=== PATIENT | female | born 1985 | race Caucasian/White ===

== ENCOUNTER 2016-11-04 13:38 | Emergency (ER) | payer OTHER ==
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
[2016-11-04] MEDS ORDERED: ACETAMINOPHEN 325 MG TABLET PO ONE (16:30)
[2016-11-04] MEDS ORDERED: METHOCARBAMOL 500 MG TABLET PO ONE (16:30)
[2016-11-04] MEDS: ACETAMINOPHEN 325 MG TABLET PO STA (16:43)
[2016-11-04] MEDS: METHOCARBAMOL 500 MG TABLET PO STA (16:43)
--- NOTE | 2016-11-04 16:54 | XRAY Preliminary Report ---
Exam: XR Lumbar Spine 2 View IMPRESSION: 1. No acute bony abnormality. 2. Old minimal wedging L1. 3. IUD. [facility] SITE ID: [id number]
[2016-11-04 17:15] VITALS: BP 129/85
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
== END 2016-11-04 17:15 | disposition home or self-care (01) ==
LOC: ED 13:38
DX: S39.012A Strain of muscle, fascia and tendon of lower back, initial encounter (principal); V43.52XA Car driver injured in collision with other type car in traffic accident, initial encounter; Y92.488 Other paved roadways as the place of occurrence of the external cause; Z97.5 Presence of (intrauterine) contraceptive device
CPT/HCPCS: 72100; 99283

== ENCOUNTER 2016-11-21 15:20 | Outpatient (CLI) | payer OTHER | END 2016-11-21 23:59 | DX: Z13.9 Encounter for screening, unspecified (principal) ==

== ENCOUNTER 2016-12-20 12:41 | Outpatient (CLI) | payer OTHER ==
--- NOTE | 2016-12-20 14:28 | Ultrasound Report ---
ABDOMINAL ULTRASOUND: 12/20/2016 CLINICAL INDICATION: Elevated LFTs, abdominal pain. TECHNIQUE: Real-time scanning was performed with life assurance representative static images obtained. FINDINGS: The liver measures 15.4 cm. Hepatic echotexture is normal. No intrahepatic biliary dilatat ion or focal parenchymal lesion is appreciated. The common bile duct measures 2 mm. The gallbladder i s unremarkable. The right kidney measures 12.2 cm, and the left kidney measures 13.0 cm. No solid fidel al lesion or hydronephrosis is present. The spleen measures 12 cm, and demonstrates normal echotextur e. The abdominal aorta is normal in caliber. The inferior vena cava is unremarkable. No free fluid is present. The pancreas is obscured by bowel gas. IMPRESSION: NORMAL ABDOMINAL ULTRASOUND. JOB #: [id number] EXT JOB #:[id number]
--- NOTE | 2016-12-20 17:04 | Ultrasound Report ---
EXAM: PELVIC ULTRASOUND EXAM DATE: 12/20/2016 03:02 PM. CLINICAL HISTORY: Elevated liver enzymes. Lower abdomen pain. COMPARISON: None. TECHNIQUE: Realtime transabdominal pelvic scan performed to identify the uterus and adnexa and as an overview of other pelvic structures, followed by transvaginal scan to provide greater detail of the u terus and adnexa, with static image documentation. FINDINGS: Uterus: 10.3 x 5.2 x 2.5 cm, volume 70 cc. Anteverted position. Normal overall size and echotexture. Masses: None. Endometrium: [address] Cervix: Unremarkable. Right Ovary: 3.4 x 1.8 x 2.0 cm, volume 6.4 cc. Normal echotexture and blood flow. Left Ovary: 3.3 x 1.8 x 1.9 cm, volume 5.9 cc. Normal echotexture and blood flow. Dominant follicle m easures 1.5 x 1.2 x 1.1 cm. Free Fluid: None. Other: None. IMPRESSION: IUD in place, otherwise unremarkable pelvic ultrasound. [facility] Referring Provider Line: [phone] SITE ID: [id number]
== END 2016-12-20 12:42 | disposition home or self-care (01) ==
LOC: DI 12:41
PROVIDERS: ATTEND Nurse Practitioner Gerontology
DX: R74.8 Abnormal levels of other serum enzymes (principal)
CPT/HCPCS: 76700; 76830; 76856

== ENCOUNTER 2016-12-28 21:55 | Emergency (ER) | payer OTHER ==
[2016-12-28 22:07] VITALS: BP 117/81
[2016-12-28 22:35] LABS: RAPID STREP SCREEN REAGENT QC YELLOW (YELLOW)
[2016-12-29] MEDS ORDERED: DEXAMETHASONE 10 MG/ML VIAL PO STA (00:04)
--- NOTE | 2016-12-29 00:07 | ED Physician Documentation ---
PD HPI URI - Stated complaint Stated Complaint: SORE THROAT - Chief complaint Chief Complaint: Heent - History obtained from History obtained from: Patient, Family - History of Present Illness Timing - onset: How many weeks ago (3) Timing duration: Weeks (3) Timing details: Intermittant Pain level max: 7 Pain level now: 5 Associated symptoms: Fever (subjective), Ear pain, Nasal congestion, Rhinorrhea , Sore throat, Dry cough (mild) Contributing factors: No: Sick contact Improves by: Rest Worsened by: Other (swallowing) Recently seen: Clinic (PCP for same, no dx) Review of Systems Throat: reports: Sore throat GI: denies: Vomiting : denies: Now EGA Skin: denies: Rash Musculoskeletal: denies: Neck pain, Back pain Neurologic: denies: Headache PD PAST MEDICAL HISTORY - Past Medical History Past Medical History: No Neuro: None Musculoskeletal: None - Past Surgical History Past Surgical History: No - Present Medications Home Medications: Ambulatory Orders Medication Instructions Recorded Confirmed Dexamethasone [Decadron] 4 mg PO DAILY #5 tablet 11/04/16 Hydrocodone/Acetaminophen [[place] 1 each PO Q6H PRN #20 tablet 11/04/16 5-325 Tablet] Levonorgestrel [Mirena] 1 each IY 11/04/16 Methocarbamol [Robaxin] 500 mg PO Q6H PRN #25 tablet 11/04/16 Naproxen [Naprosyn] 500 mg PO BID #20 tablet 11/04/16 Prednisone 40 mg PO DAILY #10 tablet 12/29/16 - Allergies Allergies/Adverse Reactions: Allergies Allergy/AdvReac Type Severity Reaction Status Date / Time mold Allergy Respiratory Verified 11/04/16 13:46 - Social History Does the pt smoke?: No Smoking Status: Never smoker Does the pt drink ETOH?: No Does the pt have substance abuse?: No - Immunizations Immunizations are current?: Yes - POLST Patient has POLST: No PD ED PE NORMAL - Vitals Vital signs reviewed: Yes - General General: Alert and oriented X 3, No acute distress, Well developed/nourished - HEENT HEENT: PERRL, Ears normal, Moist mucous membranes, Other (Mild posterior oropharyngeal erythema without tonsillar exudates. Uvula midline. No trismus. Normal phonation) - Neck Neck: Supple, no meningeal sign, No adenopathy - Cardiac Cardiac: RRR - Respiratory Respiratory: No respiratory distress, Clear bilaterally - Abdomen Abdomen: Soft, Non tender, Non distended, No organomegaly - Derm Derm: Warm and dry, No rash - Neuro Neuro: Alert and oriented X 3 Results - Vitals Vitals: Oxygen O2 Source Room air - Labs Labs: Microbiology 12/28/16 22:11 Group A Strep Throat Culture - Preliminary Throat Laboratory Tests 12/28/16 22:11 Group A Strep Rapid Negative PD MEDICAL DECISION MAKING - ED course Complexity details: reviewed results, re-evaluated patient, considered differential, d/w patient, d/w family ED course: Patient is a 31-year-old female that appears to be a viral pharyngitis. Rapid strep is negative. Throat culture sent. She is very well-appearing, nontoxic. Tolerating p.o. without difficulty. No evidence of peritonsillar or retropharyngeal abscess. Given dexamethasone here and will continue supportive care at home. Patient counseled regarding signs and symptoms for which I believe and urgent re-evaluation would be necessary. Patient with good understanding of and agreement to plan and is comfortable going home at this time This document was made in part using voice recognition software. While efforts are made to proofread this document, sound alike and grammatical errors may occur. Departure - Departure Disposition: 01 Home, Self Care Clinical Impression: Pharyngitis Qualifiers: Pharyngitis/tonsillitis etiology: unspecified etiology Qualified Code(s): J02.9 - Acute pharyngitis, unspecified Condition: Good Instructions: ED Pharyngitis Viral Follow-Up: Meme Vera ARNP [Primary Care Provider] - Within 1 week [facility] [Provider Group] Prescriptions: Prednisone 40 mg PO DAILY #10 tablet Comments: Return if you worsen. Drink plenty of fluids and rest. Discharge Date/Time: 12/29/16 00:13
[2016-12-29] MEDS ORDERED: DEXAMETHASONE 10 MG/ML VIAL ONE (00:08)
== END 2016-12-29 00:13 | disposition home or self-care (01) ==
LOC: ED 21:55
DX: J02.9 Acute pharyngitis, unspecified (principal)
CPT/HCPCS: 87070; 87430; 99282; 99283

== ENCOUNTER 2017-01-06 11:33 | Outpatient (CLI) | payer OTHER ==
[2017-01-06 19:31] LABS: BILIRUBIN,DIRECT 0.1 mg/dL (0.1-0.5); BILIRUBIN,TOTAL 0.6 mg/dL (0.2-1.0)
[2017-01-07 08:37] LABS: HEPATITIS A AB TOTAL(IMMUNITY) NON-REACTIVE (NON-REACTIVE)
== END 2017-01-06 11:34 | disposition home or self-care (01) ==
LOC: LAB.N 11:33
PROVIDERS: ATTEND Nurse Practitioner Gerontology
DX: R74.8 Abnormal levels of other serum enzymes (principal); R10.30 Lower abdominal pain, unspecified
CPT/HCPCS: 36415; 80076; 81599; 86317; 86704; 86706; 86708; 86803; 87340

== ENCOUNTER 2018-11-18 20:24 | Emergency (ER) | payer OTHER ==
[2018-11-18 20:31] VITALS: BP 142/87
[2018-11-18] MEDS ORDERED: IBUPROFEN 800 MG TABLET PO STA (20:45)
[2018-11-18] MEDS ORDERED: guaiFENesin/CODEINE 5 ML UDC PO STA (20:45)
--- NOTE | 2018-11-18 20:47 | ED Physician Documentation ---
History of Present Illness - Stated complaint Stated Complaint: FLU LIKE SYMPTOMS - Chief complaint Chief Complaint: General - History obtained from History obtained from: Patient - History of Present Illness Timing: Other (She is been sick for 3 days with cough, runny nose sore throat chills body aches and sinus pain. She had right ear pain but now that is better. No recent travel. There is a possibility of .) Review of Systems Constitutional: reports: Fever, Chills, Myalgias, Fatigue Ears: reports: Ear pain Nose: reports: Rhinorrhea / runny nose, Congestion, Sinus pressure / pain Throat: reports: Sore throat Respiratory: reports: Cough. denies: Dyspnea GI: denies: Abdominal Pain PD PAST MEDICAL HISTORY - Past Medical History Musculoskeletal: None - Past Surgical History Past Surgical History: No - Present Medications Home Medications: Ambulatory Orders Medication Instructions Recorded Confirmed Dexamethasone [Decadron] 4 mg PO DAILY #5 tablet 11/04/16 Hydrocodone/Acetaminophen [[place] 1 each PO Q6H PRN #20 tablet 11/04/16 5-325 Tablet] Levonorgestrel [Mirena] 1 each IY 11/04/16 Methocarbamol [Robaxin] 500 mg PO Q6H PRN #25 tablet 11/04/16 Naproxen [Naprosyn] 500 mg PO BID #20 tablet 11/04/16 predniSONE [Prednisone] 40 mg PO DAILY #10 tablet 12/29/16 Guaifenesin/Pseudoephedrne HCl 1 each PO BID PRN #20 tab.er.12h 11/18/18 [Mucinex D ER 600-60 mg Tablet] Ibuprofen [Motrin] 800 mg PO Q8H PRN #30 tablet 11/18/18 guaiFENesin/CODEINE [Robitussin AC] 5 - 10 ml PO Q6H PRN #120 ml 11/18/18 - Allergies Allergies/Adverse Reactions: Allergies Allergy/AdvReac Type Severity Reaction Status Date / Time mold Allergy Respiratory Verified 11/18/18 20:31 - Social History Does the pt smoke?: No Smoking Status: Never smoker Does the pt drink ETOH?: No Does the pt have substance abuse?: No - Immunizations Immunizations are current?: Yes - POLST Patient has POLST: No PD ED PE NORMAL - Vitals Vital signs reviewed: Yes - General General: Alert and oriented X 3, No acute distress - HEENT HEENT: Ears normal, Pharynx benign - Neck Neck: Supple, no meningeal sign, No bony TTP - Cardiac Cardiac: RRR, No murmur - Respiratory Respiratory: Other (Pretty rhonchorous especially at the bases) - Abdomen Abdomen: Soft, Non tender - Derm Derm: No rash - Neuro Neuro: Alert and oriented X 3, Normal speech Results - Vitals Vitals: Vital Signs - 24 hr 11/18/18 20:29 Temperature 37.1 C Heart Rate 107 H Respiratory 18 Rate Blood Pressure 142/87 H O2 Saturation 97 Oxygen O2 Source Room air - Labs Labs: Laboratory Tests 11/18/18 20:49 Ur Specific [place] >=1.030 H Urine HCG, Qual NEGATIVE - Rads (name of study) 2v chest Radiology: EMP read contemporaneously (NAD) Departure - Departure Disposition: ED Transfer to [facility] Clinical Impression: Viral URI with cough Condition: Good Record reviewed to determine appropriate education?: Yes Instructions: ED Viral Syndrome Prescriptions: guaiFENesin/CODEINE [Robitussin AC] 5 - 10 ml PO Q6H PRN #120 ml PRN Reason: Cough Guaifenesin/Pseudoephedrne HCl [Mucinex D ER 600-60 mg Tablet] 1 each PO BID PRN #20 tab.er.12h PRN Reason: congestion Ibuprofen [Motrin] 800 mg PO Q8H PRN #30 tablet PRN Reason: PAIN &/OR FEVER Comments: Recheck with your doctor in a few days if not better, return for new or worsening symptoms.
[2018-11-18 21:00] LABS: HCG UR QUAL NEGATIVE
--- NOTE | 2018-11-18 21:26 | XRAY Report ---
Reason: cough, wait for preg test Procedure Date: 11/18/2018 Accession Number: [id number] / [id number] Procedure: XR - Chest 2 View X-Ray CPT Code: 60872 FULL RESULT: EXAM: CHEST RADIOGRAPHY EXAM DATE: 11/18/2018 09:09 PM. CLINICAL HISTORY: Productive cough, chest pain, fever x 3 days. COMPARISON: None. TECHNIQUE: 2 views. FINDINGS: Lungs/Pleura: No focal opacities evident. No pleural effusion. No pneumothorax. Normal volumes. Mediastinum: Heart and mediastinal contours are unremarkable. Other: No fractures identified. IMPRESSION: Normal 2-view chest radiography. [facility]
== END 2018-11-18 21:37 | disposition home or self-care (01) ==
LOC: ED 20:24
DX: J06.9 Acute upper respiratory infection, unspecified (principal); B97.89 Other viral agents as the cause of diseases classified elsewhere
CPT/HCPCS: 71046; 81025; 99283; A9270

== ENCOUNTER 2019-03-14 10:53 | Emergency (ER) | payer OTHER ==
[2019-03-14 11:17] VITALS: BP 119/75
--- NOTE | 2019-03-14 11:58 | XRAY Report ---
Reason: trauma, bruising, pain. Procedure Date: 03/14/2019 Accession Number: [id number] / [id number] Procedure: XR - Toe(s) RT CPT Code: FULL RESULT: EXAM: RIGHT FOURTH TOE RADIOGRAPHY EXAM DATE: 03/14/2019 11:33 AM. CLINICAL HISTORY: Trauma, bruising, pain. COMPARISON: None. TECHNIQUE: 3 views. FINDINGS: Bones: There appears to be ankylosis of the middle and distal phalanges, a normal variant. There is a transverse lucency through the distal phalanx, suspicious for nondisplaced fracture. Joints: No dislocation or subluxation. Soft Tissues: Unremarkable. IMPRESSION: Findings suspicious for nondisplaced transverse fracture through the fourth distal phalanx. [facility]
--- NOTE | 2019-03-14 12:36 | ED Physician Documentation ---
History of Present Illness - Stated complaint Stated Complaint: R FOOT INJ - Chief complaint Chief Complaint: Ext Problem - History obtained from History obtained from: Patient - History of Present Illness Timing: Prior to arrival - Additonal information Additional information: Patient is a previously healthy 33-year-old female presenting with right fourth toe pain after accidentally stubbing it on the couch earlier today. Patient reports diffuse pain, swelling, mild bruising to the area. Patient denies changes in sensation, strength, range of motion to the toes or foot. Patient has been able to bear weight but with pain. No other injuries. No other improving or worse factors noted. Review of Systems Musculoskeletal: reports: Extremity pain, Pain with weight bearing Neurologic: denies: Focal weakness, Numbness PD PAST MEDICAL HISTORY - Past Medical History Past Medical History: No Musculoskeletal: None - Past Surgical History Past Surgical History: No - Present Medications Home Medications: Ambulatory Orders Medication Instructions Recorded Confirmed Amitriptyline [Elavil] 10 mg PO HS 03/14/19 03/14/19 - Allergies Allergies/Adverse Reactions: Allergies Allergy/AdvReac Type Severity Reaction Status Date / Time mold Allergy Respiratory Verified 03/14/19 11:16 - Social History Does the pt smoke?: No Smoking Status: Never smoker Does the pt drink ETOH?: No Does the pt have substance abuse?: No - Immunizations Immunizations are current?: Yes - POLST Patient has POLST: No PD ED PE NORMAL - Vitals Vital signs reviewed: Yes - General General: Alert and oriented X 3, No acute distress, Well developed/nourished - HEENT HEENT: Atraumatic, Moist mucous membranes - Neck Neck: Supple, no meningeal sign - Cardiac Cardiac: Strong equal pulses - Respiratory Respiratory: No respiratory distress - Derm Derm: Warm and dry, No rash, Other (Mild swelling and bruising to the right fourth toe on the dorsal aspect and more distal) - Extremities Extremities: No deformity. No: No tenderness to palpate (Tender throughout the right fourth toe) - Neuro Neuro: Alert and oriented X 3, No motor deficit, No sensory deficit - Psych Psych: Normal mood, Normal affect Results - Vitals Vitals: Vital Signs - 24 hr 03/14/19 11:15 Temperature 36.1 C L Heart Rate 73 Respiratory 18 Rate Blood Pressure 119/75 O2 Saturation 98 Oxygen O2 Source Room air PD MEDICAL DECISION MAKING - ED course Complexity details: reviewed results, considered differential, d/w patient ED course: Patient had minor injury to the fourth toe resulting and pain, bruising, and swelling. Plain film obtained which did find questionable nondisplaced fracture of the fourth distal phalanx.Discussed results and recommendations with patient and offered postop shoe which she accepted. Also discussed other options such as manuel taping. Additionally discussed supportive care such as elevation, ice application, ibuprofen/Tylenol. Provided instructions on return precautions and appropriate follow-up. Patient voiced understanding and is comfortable with discharge plan. Departure - Departure Disposition: 01 Home, Self Care Clinical Impression: Toe fracture, right Qualifiers: Encounter type: initial encounter Toe: lesser toe Fracture type: closed Phalanx: distal Fracture alignment: nondisplaced Qualified Code(s): S92.534A - Nondisplaced fracture of distal phalanx of right lesser toe(s), initial encounter for closed fracture Condition: Good Instructions: ED Fx Toe Closed Follow-Up: NEDA MARVIN [Primary Care Provider] - Within 3 Days Comments: May manuel tape toe or use postop shoe as instructed to help relieve discomfort and promote healing. Also recommend elevation, ice application, ibuprofen/Tylenol as needed. Please follow-up with primary care physician in next 2 to 3 days and return to ED sooner if experience worsening symptoms or have other concerns.
== END 2019-03-14 12:53 | disposition home or self-care (01) ==
LOC: ED 10:53
DX: S92.534A Nondisplaced fracture of distal phalanx of right lesser toe(s), initial encounter for closed fracture (principal); W22.03XA Walked into furniture, initial encounter
CPT/HCPCS: 73660; 99282; 99283

== ENCOUNTER 2019-09-19 13:57 | Emergency (ER) | payer OTHER ==
[2019-09-19 14:14] VITALS: BP 135/92
[2019-09-19] MEDS ORDERED: PSEUDOEPHEDRINE 30 MG TABLET PO STA (14:16)
[2019-09-19] MEDS ORDERED: AMOX/CLAV 875 MG/125 MG TABLET PO STA (14:16)
[2019-09-19] MEDS ORDERED: BUTALB/ACETAM/CAFF 50/325/40MG TABLET PO STA (14:16)
--- NOTE | 2019-09-19 14:21 | ED Physician Documentation ---
PD HPI URI - Stated complaint Stated Complaint: LEON/CONGESTION - Chief complaint Chief Complaint: Heent - History obtained from History obtained from: Patient - History of Present Illness Timing - onset: How many days ago (3) Timing duration: Days (3) Timing details: Gradual onset Pain level max: 8 Pain level now: 8 Associated symptoms: Fever, Chills, Nasal congestion, Rhinorrhea, Sinus pain, Sore throat, Other (R ear pain) Contributing factors: Sick contact Improves by: Rest Worsened by: Activity, Breathing Recently seen: Not recently seen - Additional information Additional information: Patient complains of headache, sore throat, right ear pain and sinus pressure. She states that the sinus pressure is triggering her migraine headaches as well. Took Imitrex prior to arrival. Review of Systems Constitutional: reports: Fever (Subjective), Chills GI: denies: Vomiting, Diarrhea : denies: Now EGA Skin: denies: Rash Musculoskeletal: denies: Neck pain, Back pain Neurologic: denies: Focal weakness, Seizure, Confused, Altered mental status PD PAST MEDICAL HISTORY - Past Medical History Past Medical History: Yes Neuro: Migraines Musculoskeletal: None - Past Surgical History Past Surgical History: No - Present Medications Home Medications: Ambulatory Orders Medication Instructions Recorded Confirmed Amitriptyline [Elavil] 0 mg PO DAILY PM 03/14/19 09/19/19 Amox/Clav 875/125 [Augmentin] 1 tab PO Q12H #20 tablet 09/19/19 Cetirizine HCl/Pseudoephedrine 1 each PO BID PRN #30 tab.er.12h 09/19/19 [Zyrtec-D Tablet] Prochlorperazine Maleate 10 mg PO TID PRN 09/19/19 09/19/19 [Compazine] SUMAtriptan succinate [Sumatriptan 100 mg PO PRN PRN 09/19/19 09/19/19 Succinate] - Allergies Allergies/Adverse Reactions: Allergies Allergy/AdvReac Type Severity Reaction Status Date / Time mold Allergy Respiratory Verified 09/19/19 14:11 - Social History Does the pt smoke?: No Smoking Status: Never smoker Does the pt drink ETOH?: No Does the pt have substance abuse?: No - Immunizations Immunizations are current?: Yes - POLST Patient has POLST: No PD ED PE NORMAL - Vitals Vital signs reviewed: Yes - General General: Alert and oriented X 3, No acute distress, Well developed/nourished - HEENT HEENT: PERRL, Ears normal (Right TM is erythematous, dull, bulging with loss of landmarks. Purulent fluid present. Left TM is normal), Moist mucous membranes, Other (Mild posterior pharyngeal erythema without tonsillar exudates. Uvula midline. Normal phonation. No trismus. Tender to palpation over the frontal and maxillary sinuses) - Neck Neck: Supple, no meningeal sign, No adenopathy, Other (Full range of motion without any pain) - Cardiac Cardiac: RRR, Strong equal pulses - Respiratory Respiratory: No respiratory distress, Clear bilaterally - Abdomen Abdomen: Soft, Non tender, Non distended - Derm Derm: Warm and dry, No rash - Neuro Neuro: Alert and oriented X 3 - Psych Psych: Normal mood, Normal affect Results - Vitals Vitals: Vital Signs - 24 hr 09/19/19 14:05 Temperature 36.8 C Heart Rate 98 Respiratory 16 Rate Blood Pressure 135/92 H O2 Saturation 97 Oxygen O2 Source Room air PD MEDICAL DECISION MAKING - ED course Complexity details: considered differential, d/w patient ED course: Patient with a right acute otitis media and likely sinusitis. She is tender over the frontal and maxillary sinuses. Patient is well-appearing, nontoxic. Afebrile. No hypoxia. Will place on decongestants and antibiotics for home. Patient counseled regarding signs and symptoms for which I believe and urgent re-evaluation would be necessary. Patient with good understanding of and agreement to plan and is comfortable going home at this time This document was made in part using voice recognition software. While efforts are made to proofread this document, sound alike and grammatical errors may occur. Departure - Departure Disposition: Home, Self Care Clinical Impression: Acute sinusitis Qualifiers: Sinusitis location: unspecified location Otitis media Qualifiers: Otitis media type: suppurative Chronicity: acute Laterality: right Recurrence: non-recurrent Spontaneous tympanic membrane rupture: without spontaneous rupture Qualified Code(s): H66.001 - Acute suppurative otitis media without spontaneous rupture of ear drum, right ear Condition: Good Instructions: ED Otitis Media Acute Adult, ED Sinusitis Abx Tx Follow-Up: NEDA MARVIN [Primary Care Provider] - Within 1 week Prescriptions: Amox/Clav 875/125 [Augmentin] 1 tab PO Q12H #20 tablet Cetirizine HCl/Pseudoephedrine [Zyrtec-D Tablet] 1 each PO BID PRN #30 tab.er.12h PRN Reason: nasal congestion Comments: Take all antibiotics until gone. Return if you worsen. Follow-up with your doctor for further care. This should continue to improve over the next few days.
== END 2019-09-19 14:25 | disposition home or self-care (01) ==
LOC: ED 13:57
DX: H66.001 Acute suppurative otitis media without spontaneous rupture of ear drum, right ear (principal); J01.10 Acute frontal sinusitis, unspecified; J01.00 Acute maxillary sinusitis, unspecified
CPT/HCPCS: 99282; 99284; A9270

== ENCOUNTER 2021-04-09 21:19 | Emergency (ER) | payer OTHER ==
[2021-04-09 21:38] LABS: BILIRUBIN,URINE NEGATIVE (NEGATIVE); GLUCOSE, URINE (UA) NEGATIVE (NEGATIVE); KETONES,URINE (UA) NEGATIVE (NEGATIVE); LEUKOCYTE ESTERASE, URINE NEGATIVE (NEGATIVE); NITRITE,URINE NEGATIVE (NEGATIVE); OCCULT BLOOD,URINE NEGATIVE (NEGATIVE); PH,URINE 6.5 PH (5.0-7.5); PROTEIN,URINE TRACE mg/dL (NEGATIVE); UROBILINOGEN,URINE 0.2 (NORMAL) E.U./dL (NORMAL)
[2021-04-09 21:47] LABS: CLARITY,URINE CLEAR (CLEAR); HCG UR QUAL NEGATIVE
[2021-04-09 21:57] LABS: BASOPHILS % (AUTO) 0.2 %; EOSINOPHILS # (AUTO) 0.1 10^3/uL (0.0-0.7); EOSINOPHILS % (AUTO) 0.8 %; HCT - HEMATOCRIT 40.6 % (37.0-47.0); HGB - HEMOGLOBIN 13.7 g/dL (12.0-16.0); LYMPHOCYTES # (AUTO) 3.5 10^3/uL (1.5-3.5); LYMPHOCYTES % (AUTO) 37.8 %; MEAN CORPUSCULAR HEMOGLOBIN 31.2 pg (27.0-31.0); MEAN CORPUSCULAR HGB CONC 33.7 g/dL (32.0-36.0); MEAN CORPUSCULAR VOLUME 92.5 fL (81.0-99.0); MEAN PLATELET VOLUME 8.9 fL (7.9-10.8); MONOCYTES # (AUTO) 0.5 10^3/uL (0.0-1.0); MONOCYTES % (AUTO) 5.7 %; NEUTROPHILS # (AUTO) 5.2 10^3/uL (1.5-6.6); NEUTROPHILS % (AUTO) 55.3 %; PLT - PLATELET COUNT 345 10^3/uL (130-450); RED BLOOD COUNT 4.39 10^6/uL (4.20-5.40); RED CELL DISTRIBUTION WIDTH 11.8 % (12.0-15.0); WHITE BLOOD COUNT 9.3 x10^3/uL (4.8-10.8)
[2021-04-09 22:10] LABS: ALBUMIN 5.1 g/dL (3.2-5.5); ALBUMIN/GLOBULIN RATIO 1.6 (1.0-2.2); BILIRUBIN,TOTAL 0.7 mg/dL (0.2-1.0); CALCIUM 9.3 mg/dL (8.5-10.3); CREATININE 0.6 mg/dL (0.4-1.0); POTASSIUM 3.6 mmol/L (3.5-5.0); TOTAL PROTEIN 8.3 g/dL (6.7-8.2)
[2021-04-09] MEDS ORDERED: MAG HYDROX/AL HYDROX/SIMETH 30 ML UDC PO STA (22:46)
[2021-04-09] MEDS ORDERED: diphenhydrAMINE ELIXIR 25 MG/10 ML UDC PO STA (22:46)
[2021-04-09] MEDS ORDERED: LIDOCAINE VISCOUS 2% 15 ML UDC MM STA (22:46)
[2021-04-09] MEDS ORDERED: KETOROLAC 30 MG/ML VIAL IM STA (22:47)
--- NOTE | 2021-04-09 22:49 | ED Physician Documentation ---
History of Present Illness - Stated complaint Stated Complaint: ABD PX - Chief complaint Chief Complaint: Abd Pain - History obtained from History obtained from: Patient - Additonal information Additional information: 35-year-old woman with history of migraines presents with gradual onset epigastric abdominal pain starting about 3 hours prior to arrival, initially 3 out of 10, constant, gradually increasing that is currently an 8 out of 10, associated with nausea she attributes only to pain. Patient states she felt normal earlier in the day and had dinner with her family then took a bunch of vi tamins and started to experience symptoms. Pain is described as a tightening located in the epigastric region and radiating diffusely to the mid abdomen, without exacerbating or relieving symptoms. "It feels like I got punched in the gut". Review of Systems Ten Systems: 10 systems reviewed and negative Constitutional: denies: Fever, Chills Cardiac: denies: Chest pain / pressure Respiratory: denies: Dyspnea, Cough GI: reports: Abdominal Pain, Nausea. denies: Vomiting, Constipation (normal BM today, nonbloody), Diarrhea : denies: Dysuria, Frequency, Hematuria Musculoskeletal: denies: Back pain PD PAST MEDICAL HISTORY - Past Medical History Past Medical History: Yes Neuro: Migraines Musculoskeletal: None - Past Surgical History Past Surgical History: No - Present Medications Home Medications: Ambulatory Orders Medication Instructions Recorded Confirmed Amitriptyline [Elavil] 0 mg PO DAILY PM 03/14/19 09/19/19 Amox/Clav 875/125 [Augmentin] 1 tab PO Q12H #20 tablet 09/19/19 Cetirizine HCl/Pseudoephedrine 1 each PO BID PRN #30 tab.er.12h 09/19/19 [Zyrtec-D Tablet] Prochlorperazine Maleate 10 mg PO TID PRN 09/19/19 09/19/19 [Compazine] SUMAtriptan succinate [Sumatriptan 100 mg PO PRN PRN 09/19/19 09/19/19 Succinate] - Allergies Allergies/Adverse Reactions: Allergies Allergy/AdvReac Type Severity Reaction Status Date / Time mold Allergy Respiratory Verified 04/09/21 21:22 - Social History Does the pt smoke?: No Smoking Status: Never smoker Does the pt drink ETOH?: No Does the pt have substance abuse?: No - Immunizations Immunizations are current?: Yes - POLST Patient has POLST: No PD ED PE NORMAL - Vitals Vital signs reviewed: Yes - General General: Alert and oriented X 3, No acute distress, Well developed/nourished - HEENT HEENT: Atraumatic, PERRL, EOMI - Neck Neck: Supple, no meningeal sign - Cardiac Cardiac: RRR - Respiratory Respiratory: No respiratory distress, Clear bilaterally - Abdomen Abdomen: Non tender, Non distended, Other (discomfort diffusely to palpation, worse in epigastrium) - Back Back: No CVA TTP - Derm Derm: Normal color, Warm and dry - Extremities Extremities: No deformity - Neuro Neuro: Alert and oriented X 3 - Psych Psych: Normal mood, Normal affect Results - Vitals Vitals: Vital Signs - 24 hr 04/09/21 21:22 Temperature 36.5 C Heart Rate 96 Respiratory 16 Rate Blood Pressure 150/100 H O2 Saturation 100 Oxygen O2 Source Room air - Labs Labs: Laboratory Tests 04/09/21 04/09/21 04/09/21 21:32 21:50 21:50 WBC 9.3 RBC 4.39 Hgb 13.7 Hct 40.6 MCV 92.5 MCH 31.2 H MCHC 33.7 RDW 11.8 L Plt Count 345 MPV 8.9 Neut # (Auto) 5.2 Lymph # (Auto) 3.5 [place] # (Auto) 0.5 Eos # (Auto) 0.1 Baso # (Auto) 0.0 Absolute Nucleated RBC 0.00 Nucleated RBC % 0.0 Sodium 138 Potassium 3.6 Chloride 102 Carbon Dioxide 24 Anion Gap 12.0 BUN 13 Creatinine 0.6 Estimated GFR (MDRD) 115 Glucose 120 H Calcium 9.3 Total Bilirubin 0.7 AST 41 ALT 56 Alkaline Phosphatase 99 Total Protein 8.3 H Albumin 5.1 Globulin 3.2 Albumin/Globulin Ratio 1.6 Lipase 23 Urine Color YELLOW Urine Clarity CLEAR Urine pH 6.5 Ur Specific [place] 1.020 Urine Protein TRACE Urine Glucose (UA) NEGATIVE Urine Ketones NEGATIVE Urine Occult Blood NEGATIVE Urine Nitrite NEGATIVE Urine Bilirubin NEGATIVE Urine Urobilinogen 0.2 (NORMAL) Ur Leukocyte Esterase NEGATIVE Ur Microscopic Review NOT INDICATED Urine Culture Comments NOT INDICATED Urine HCG, Qual NEGATIVE PD MEDICAL DECISION MAKING - ED course ED course: 35-year-old woman presents with epigastric abdominal pain. Negative Mendosa sign, pancreatic labs normal. This appears to be gastric in origin versus musculoskeletal therefore I will treat with acute GI cocktail and Toradol. Reevaluate. Departure - Departure Disposition: 01 Home, Self Care Clinical Impression: Epigastric abdominal pain Condition: Good Instructions: ED Abdominal Pain Unkn Cause Comments: You were seen in the emergency department for abdominal pain. Your lab work was normal. We gave you magic mouthwash and Toradol with improvement in symptoms. Please follow-up with your primary doctor this week. Return to the emergency department you have any new or worsening symptoms or other concerns.
[2021-04-10 00:40] VITALS: BP 131/93
== END 2021-04-10 00:40 | disposition home or self-care (01) ==
LOC: ED 21:19
DX: R10.13 Epigastric pain (principal)
CPT/HCPCS: 36415; 80053; 81003; 81025; 83690; 85025; 96372; 99283; A9270; 81001; 87086

== ENCOUNTER 2022-01-16 20:15 | Emergency (ER) | payer OTHER ==
[2022-01-16 20:37] LABS: BASOPHILS % (AUTO) 0.3 %; EOSINOPHILS # (AUTO) 0.1 10^3/uL (0.0-0.7); EOSINOPHILS % (AUTO) 0.8 %; HCT - HEMATOCRIT 38.8 % (37.0-47.0); HGB - HEMOGLOBIN 13.4 g/dL (12.0-16.0); LYMPHOCYTES # (AUTO) 3.5 10^3/uL (1.5-3.5); MEAN CORPUSCULAR HEMOGLOBIN 30.7 pg (27.0-31.0); MEAN CORPUSCULAR HGB CONC 34.5 g/dL (32.0-36.0); MEAN CORPUSCULAR VOLUME 88.8 fL (81.0-99.0); MEAN PLATELET VOLUME 8.8 fL (7.9-10.8); MONOCYTES # (AUTO) 0.6 10^3/uL (0.0-1.0); MONOCYTES % (AUTO) 6.6 %; NEUTROPHILS # (AUTO) 5.4 10^3/uL (1.5-6.6); NEUTROPHILS % (AUTO) 56.1 %; PLT - PLATELET COUNT 334 10^3/uL (130-450); RED BLOOD COUNT 4.37 10^6/uL (4.20-5.40); RED CELL DISTRIBUTION WIDTH 11.6 % (12.0-15.0); WHITE BLOOD COUNT 9.6 x10^3/uL (4.8-10.8)
[2022-01-16 20:51] LABS: ALBUMIN 4.7 g/dL (3.2-5.5); ALBUMIN/GLOBULIN RATIO 1.2 (1.0-2.2); BILIRUBIN,TOTAL 0.7 mg/dL (0.2-1.0); CALCIUM 9.4 mg/dL (8.5-10.3); CREATININE 0.7 mg/dL (0.4-1.0); POTASSIUM 3.6 mmol/L (3.5-5.0); TOTAL PROTEIN 8.7 g/dL (6.7-8.2)
--- NOTE | 2022-01-16 21:57 | ED Physician Documentation ---
PD HPI NVD - Stated complaint Stated Complaint: ABD PX/VOMIT/LIGHTHEADED - Chief complaint Chief Complaint: Abd Pain - History obtained from History obtained from: Patient, Family - History of Present Illness Timing - onset: How many days ago (4) Timing - duration: Days (4) Timing - details: Gradual onset, Still present Associated symptoms: Abdominal pain, Dysuria, Vaginal bleeding Improved by: Laying still Worsened by: Moving, Position, Palpation Similar symptoms before: Has not had sx before Recently seen: Clinic (for shoulder pain related to COVID shot with excessive adenopathy) - Additonal information Additional information: 36-year-old [place] has developed suprapubic abdominal pain about 4 days ago associated with some urinary frequency and urgency and she is subsequently developed worsening of the pain when she started her menses. The menses is happening off schedule. She has developed some diarrhea and vomiting associated with the abdominal pain. Review of Systems Constitutional: denies: Fever Eyes: denies: Decreased vision Ears: denies: Ear pain Nose: denies: Congestion Throat: denies: Sore throat Cardiac: denies: Chest pain / pressure Respiratory: denies: Dyspnea, Cough GI: reports: Abdominal Pain, Nausea, Vomiting, Diarrhea : reports: Dysuria, Frequency Skin: denies: Rash Musculoskeletal: denies: Neck pain, Back pain, Extremity pain Neurologic: denies: Generalized weakness, Focal weakness, Numbness PD PAST MEDICAL HISTORY - Past Medical History Past Medical History: Yes Cardiovascular: None Respiratory: None Neuro: Migraines Endocrine/Autoimmune: None GI: None HEAVY TRUCK DRIVER: None : None HEENT: None Psych: None Musculoskeletal: None Derm: None - Past Surgical History Past Surgical History: No - Present Medications Home Medications: Ambulatory Orders Medication Instructions Recorded Confirmed Amitriptyline [Elavil] 0 mg PO DAILY PM 03/14/19 09/19/19 Amox/Clav 875/125 [Augmentin] 1 tab PO Q12H #20 tablet 09/19/19 Cetirizine HCl/Pseudoephedrine 1 each PO BID PRN #30 tab.er.12h 09/19/19 [Zyrtec-D Tablet] Prochlorperazine Maleate 10 mg PO TID PRN 09/19/19 09/19/19 [Compazine] SUMAtriptan succinate [Sumatriptan 100 mg PO PRN PRN 09/19/19 09/19/19 Succinate] Sulfamethox/Trimeth 800/160 1 each PO BID #10 tablet 01/17/22 [Bactrim Ds] - Allergies Allergies/Adverse Reactions: Allergies Allergy/AdvReac Type Severity Reaction Status Date / Time mold Allergy Respiratory Verified 01/16/22 20:23 - Social History Does the pt smoke?: No Smoking Status: Never smoker Does the pt drink ETOH?: No Does the pt have substance abuse?: No - Immunizations Immunizations are current?: Yes - POLST Patient has POLST: No PD ED PE NORMAL - Vitals Vital signs reviewed: Yes (hypertensive ) - General General: Alert and oriented X 3, No acute distress, Well developed/nourished - HEENT HEENT: Atraumatic, PERRL, EOMI - Neck Neck: Supple, no meningeal sign, No bony TTP - Cardiac Cardiac: RRR, No murmur - Respiratory Respiratory: No respiratory distress, Clear bilaterally - Abdomen Abdomen: Normal bowel sounds, Soft, Non distended, No organomegaly, Other (suprapubic tenderness is present worse on the right ) - Back Back: No CVA TTP, No spinal TTP - Derm Derm: Normal color, Warm and dry, No rash - Extremities Extremities: No deformity, No edema - Neuro Neuro: Alert and oriented X 3, 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, No motor deficit, No sensory deficit, Normal speech Eye Opening: Spontaneous Motor: Obeys Commands Verbal: Oriented GCS Score: 15 - Psych Psych: Normal mood, Normal affect Results - Vitals Vitals: Vital Signs - 24 hr 01/16/22 01/16/22 01/16/22 20:18 21:58 23:39 Temperature 36.8 C Heart Rate 98 103 H 76 Respiratory 16 16 16 Rate Blood Pressure 152/107 H 145/100 H 141/88 H O2 Saturation 98 97 98 01/17/22 00:30 Temperature Heart Rate 72 Respiratory 17 Rate Blood Pressure 121/78 O2 Saturation 98 Oxygen O2 Source Room air - Labs Labs: Laboratory Tests 01/16/22 01/16/22 01/16/22 20:34 20:34 22:19 WBC 9.6 RBC 4.37 Hgb 13.4 Hct 38.8 MCV 88.8 MCH 30.7 MCHC 34.5 RDW 11.6 L Plt Count 334 MPV 8.8 Neut # (Auto) 5.4 Lymph # (Auto) 3.5 [place] # (Auto) 0.6 Eos # (Auto) 0.1 Baso # (Auto) 0.0 Absolute Nucleated RBC 0.00 Nucleated RBC % 0.0 Sodium 139 Potassium 3.6 Chloride 103 Carbon Dioxide 26 Anion Gap 10.0 BUN 15 Creatinine 0.7 Estimated GFR (MDRD) 96 Glucose 132 H Calcium 9.4 Total Bilirubin 0.7 AST 33 ALT 58 Alkaline Phosphatase 108 Total Protein 8.7 H Albumin 4.7 Globulin 4.0 Albumin/Globulin Ratio 1.2 Lipase 22 Urine Color YELLOW Urine Clarity SL. CLOUDY Urine pH 6.0 Ur Specific [place] 1.025 Urine Protein 30 H Urine Glucose (UA) NEGATIVE Urine Ketones NEGATIVE Urine Occult Blood LARGE H Urine Nitrite NEGATIVE Urine Bilirubin NEGATIVE Urine Urobilinogen 0.2 (NORMAL) Ur Leukocyte Esterase SMALL H Urine RBC TNTC H Urine WBC 6-10 H Ur Squamous Epith Cells FEW Squamous Urine Bacteria Few Ur Microscopic Review INDICATED Urine Culture Comments INDICATED Urine HCG, Qual 01/16/22 22:19 WBC RBC Hgb Hct MCV MCH MCHC RDW Plt Count MPV Neut # (Auto) Lymph # (Auto) [place] # (Auto) Eos # (Auto) Baso # (Auto) Absolute Nucleated RBC Nucleated RBC % Sodium Potassium Chloride Carbon Dioxide Anion Gap BUN Creatinine Estimated GFR (MDRD) Glucose Calcium Total Bilirubin AST ALT Alkaline Phosphatase Total Protein Albumin Globulin Albumin/Globulin Ratio Lipase Urine Color Urine Clarity Urine pH Ur Specific [place] Urine Protein Urine Glucose (UA) Urine Ketones Urine Occult Blood Urine Nitrite Urine Bilirubin Urine Urobilinogen Ur Leukocyte Esterase Urine RBC Urine WBC Ur Squamous Epith Cells Urine Bacteria Ur Microscopic Review Urine Culture Comments Urine HCG, Qual NEGATIVE - Rads (name of study) CT ab/pel Radiology: Prelim report reviewed (M pression: 1. No definite acute intra abnormal abnormality. Right nephrolithiasis without obstructive uropathy. Colonic diverticulosis without acute diverticulitis. No CT evidence of cystitis. Thin-walled right ovarian cyst is nonspecific but likely represents a follicular cyst. Small pulmona), EMP read indepedently, See rad report PD MEDICAL DECISION MAKING - ED course Complexity details: reviewed old records, reviewed results, re-evaluated patient , considered differential, d/w patient, d/w family ED course: 36-year-old female with an acute gastroenteritis has a bladder infection on top of that and has started her menses. She comes into the emergency department quite uncomfortable and we are able to perform a CT scan with the above findings which appear to be of insignificant consequence. I suspect the reason this patient is this uncomfortable is that she has 3 things at once. She had marked improvement after administration of Toradol and she was given a liter of fluid for dehydration as well as a gram of Rocephin for the urinary tract infection. We will provide her with some nausea medication and a take-home pack only of [place] and we will provide a prescription for treatment of the urinary tract infection. I did discuss with the patient the incidental findings in her CAT scan can including the 5 mm stone of the right kidney and what she can expect with that as well as the 0.3 cm pulmonary nodules. I have indicated the patient is unlikely that there is any issue with the pulmonary nodules but it is something that may need follow-up. Departure - Departure Disposition: 01 Home, Self Care Clinical Impression: Dehydration, Gastroenteritis, Dysmenorrhea Urinary tract infection Qualifiers: Urinary tract infection type: acute cystitis Hematuria presence: with hematuria Qualified Code(s): N30.01 - Acute cystitis with hematuria Condition: Stable Instructions: ED Dehydration, ED UTI Cystitis Female, ED Gastroenteritis Viral, ED Cramping Menstrual Follow-Up: CLAIRE MONTANEZ DO [Primary Care Provider] - Prescriptions: Sulfamethox/Trimeth 800/160 [Bactrim Ds] 1 each PO BID #10 tablet Comments: Key today it looks like you have several things going on at once and this is likely the reason for excessive misery. It looks like you have a gastroenteritis or something that is irritated the intestines causing the diarrhea and vomiting. This is major a little dehydrated and we have given you some saline for that. In addition there is evidence of a urinary tract infe ction and I have E [place] [facility] [place] We have provided some nausea medicine for use tonight and some pain medication. There are incidental findings on your CT scan. There is a 5 mm stone in the right kidney which will not cause you a problem until it begins to pass. At that point you may have some severe pain. This is a reason to see us for pain control. There is also a concern for some 3 mm pulmonary nodules which may require a follow-up in a year. Follow-up with your primary care doctor.
[2022-01-16 22:24] LABS: BILIRUBIN,URINE NEGATIVE (NEGATIVE); GLUCOSE, URINE (UA) NEGATIVE (NEGATIVE); KETONES,URINE (UA) NEGATIVE (NEGATIVE); LEUKOCYTE ESTERASE, URINE SMALL (NEGATIVE); NITRITE,URINE NEGATIVE (NEGATIVE); OCCULT BLOOD,URINE LARGE (NEGATIVE); PROTEIN,URINE 30 mg/dL (NEGATIVE); UROBILINOGEN,URINE 0.2 (NORMAL) E.U./dL (NORMAL)
[2022-01-16 22:31] LABS: CLARITY,URINE SL. CLOUDY (CLEAR)
[2022-01-16 22:32] LABS: BACTERIA,URINE Few /HPF (None Seen); HCG UR QUAL NEGATIVE; RBC,URINE TNTC /HPF (0-5); SQUAMOUS EPITHELIAL CELL,UR FEW Squamous (<= Few)
[2022-01-16] MEDS ORDERED: ONDANSETRON 4 MG/2 ML VIAL IVP STA (22:47)
[2022-01-16] MEDS ORDERED: cefTRIAXone 1 GM in SODIUM CHLORIDE 0.9% MINIBAG 100 ML IV STA (22:47)
[2022-01-16] MEDS ORDERED: KETOROLAC 30 MG/ML VIAL IVP STA (22:47)
[2022-01-16] MEDS ORDERED: SODIUM CHLORIDE 0.9% 1,000 ML IV STA (22:47)
[2022-01-16] MEDS ORDERED: cefTRIAXone 1 GM VIAL ONE (23:28)
--- NOTE | 2022-01-16 23:57 | CT Report ---
PROCEDURE: Abdomen/Pelvis WO INDICATIONS: suprapubic pain TECHNIQUE: Noncontrast 5 mm thick sections acquired from the diaphragms to the symphysis. 5 mm coronal and sagi ttal reformats were then performed. For radiation dose reduction, the following was used: automated exposure control, adjustment of mA and/or kV according to patient size. COMPARISON: None. FINDINGS: Image quality: Excellent. Lung bases:There is a 0.2 cm nodule in the right lower lobe on series 5 image 4. In the left lower l obe, there is a subpleural 0.3 cm nodule on series 5 image 6. A 0.3 cm left lower lobe nodule is also present on series 5 image 14.. Heart: Heart is normal in size. ABDOMEN: Liver:There is hypoattenuation of the liver consistent with fatty infiltration with mild relative sp aring along the gallbladder fossa. Gallbladder: Within normal limits without calcified gallstones. Biliary ducts: No biliary ductal dilatation. Pancreas: Unremarkable. Spleen: Normal in size. Adrenal Glands: No adrenal nodules. Kidneys and Ureters: No hydronephrosis.There is a nonobstructing stone within the right kidney akua uring up to 0.5 cm. This demonstrates attenuation values of approximately 400-500 Hounsfield units. Stomach and Bowel: Stomach, small bowel loops, and colon are normal in caliber and wall thickness. T he appendix is normal in appearance. There is colonic diverticulosis without acute diverticulitis. Peritoneum: No abnormal intraperitoneal fluid. No free air. Ventral Wall: No hernia. Abdominal Nodes: No retroperitoneal or mesenteric adenopathy by size criteria. Vessels: Aorta and inferior vena cava are normal in size. PELVIS: Pelvic Organs:There is a thin-walled right ovarian cyst measuring up to 2.7 cm.. Bladder:Bladder demonstrates normal wall thickness. No calcified bladder stones. Pelvic Nodes: No enlarged lymph nodes. Miscellaneous: No inguinal hernias are seen. Bones: Visualized osseous structures demonstrate no suspicious focal lesions. IMPRESSION: 1. No definite acute intra-abdominal abnormality. 2. Right nephrolithiasis without obstructive uropathy. 3. Colonic diverticulosis without acute diverticulitis. 4. No CT evidence of cystitis. 5. Thin-walled right ovarian cyst is nonspecific but likely represents a follicular cyst. 6. Small pulmonary nodules in the lung bases measuring up to 0.3 cm. A follow-up CT may performed in 12 months to demonstrate stability if patient is at high risk for malignancy. Reviewed by: Ja Torres MD on 01/17/2022 12:00 AM PDT Approved by: Ja Torres MD on 01/17/2022 12:00 AM PDT Station ID: [id number]
[2022-01-17 00:36] VITALS: BP 121/78
[2022-01-17] MEDS ORDERED: ONDANSETRON ODT 4 MG Prepack 2 TL PRN (00:55)
[2022-01-17] MEDS ORDERED: HYDROcod/ACET 5/325 Prepack 4 PO STA (00:55)
== END 2022-01-17 01:10 | disposition home or self-care (01) ==
LOC: ED 20:15
DX: E86.0 Dehydration (principal); K52.9 Noninfective gastroenteritis and colitis, unspecified; N94.6 Dysmenorrhea, unspecified
CPT/HCPCS: 36415; 80053; 81001; 81003; 81025; 83690; 85025; 87086; 87181; 96365; 96375; 99284

== ENCOUNTER 2022-04-07 17:23 | Emergency (ER) | payer OTHER ==
[2022-04-07 17:33] VITALS: BP 157/117
[2022-04-07] MEDS ORDERED: SODIUM CHLORIDE 0.9% 1,000 ML IV STA (17:42)
[2022-04-07] MEDS ORDERED: PROCHLORPERAZINE 10 MG/2 ML VIAL IVP STA (17:43)
[2022-04-07] MEDS ORDERED: diphenhydrAMINE INJ 50 MG/ML VIAL IVP STA (17:43)
[2022-04-07] MEDS ORDERED: HYDROmorphone 1 MG/ML CARPUJECT IVP STA (18:12)
--- NOTE | 2022-04-07 18:14 | ED Physician Documentation ---
History of Present Illness - Stated complaint Stated Complaint: MIGRAINE - Chief complaint Chief Complaint: Neuro - Additonal information Additional information: 36-year-old female presents emergency department with a headache that began 2 da ys ago. She states that she has a history of migraines and typically gets headaches every 2 or 3 days. She took her sumatriptan which did not work. She is currently on amitriptyline for headache management. She is being followed closely by a neurologist while they work on different medications to help control her symptoms. She has had no falls or trauma. No fevers or neck pain. She does endorse some light sensitivity. Review of Systems Constitutional: denies: Fever, Chills Eyes: reports: Photophobia Ears: reports: Reviewed and negative Cardiac: reports: Reviewed and negative Respiratory: reports: Reviewed and negative GI: reports: Reviewed and negative : reports: Reviewed and negative Skin: denies: Rash, Lesions Neurologic: reports: Headache. denies: Generalized weakness, Focal weakness, Numbness, Syncope, Seizure, Confused, Head injury, LOC Psychiatric: reports: Reviewed and negative Endocrine: reports: Reviewed and negative PD PAST MEDICAL HISTORY - Past Medical History Cardiovascular: None Respiratory: None Neuro: Migraines Endocrine/Autoimmune: None GI: None SOCIAL WORK SPECIALIST: None : None HEENT: None Psych: None Musculoskeletal: None Derm: None - Past Surgical History Past Surgical History: No - Present Medications Home Medications: Ambulatory Orders Medication Instructions Recorded Confirmed Amitriptyline [Elavil] 0 mg PO DAILY PM 03/14/19 09/19/19 Amox/Clav 875/125 [Augmentin] 1 tab PO Q12H #20 tablet 09/19/19 Cetirizine HCl/Pseudoephedrine 1 each PO BID PRN #30 tab.er.12h 09/19/19 [Zyrtec-D Tablet] Prochlorperazine Maleate 10 mg PO TID PRN 09/19/19 09/19/19 [Compazine] SUMAtriptan succinate [Sumatriptan 100 mg PO PRN PRN 09/19/19 09/19/19 Succinate] Sulfamethox/Trimeth 800/160 1 each PO BID #10 tablet 01/17/22 [Bactrim Ds] - Allergies Allergies/Adverse Reactions: Allergies Allergy/AdvReac Type Severity Reaction Status Date / Time mold Allergy Respiratory Verified 04/07/22 17:33 - Social History Does the pt smoke?: No Smoking Status: Never smoker Does the pt drink ETOH?: No Does the pt have substance abuse?: No - Immunizations Immunizations are current?: Yes - POLST Patient has POLST: No PD ED PE NORMAL - General General: Alert and oriented X 3, No acute distress, Well developed/nourished - HEENT HEENT: Atraumatic, Ears normal, Moist mucous membranes - Neck Neck: Supple, no meningeal sign, No adenopathy - Cardiac Cardiac: RRR, No murmur - Respiratory Respiratory: No respiratory distress, Clear bilaterally - Abdomen Abdomen: Normal bowel sounds, Soft - Back Back: No CVA TTP - Derm Derm: Normal color, Warm and dry, No rash - Extremities Extremities: No deformity - Neuro Neuro: Alert and oriented X 3, loop tender 2-12 intact, No motor deficit, No sensory deficit, Normal speech Eye Opening: Spontaneous Motor: Obeys Commands Verbal: Oriented GCS Score: 15 Results - Vitals Vitals: Vital Signs - 24 hr 04/07/22 17:30 Temperature 36.3 C L Heart Rate 79 Respiratory 16 Rate Blood Pressure 157/117 H O2 Saturation 99 Oxygen O2 Source Room air - Labs Labs: Laboratory Tests 04/07/22 18:23 Urine Color YELLOW Urine Clarity CLEAR Urine pH 7.0 Ur Specific [place] 1.010 Urine Protein NEGATIVE Urine Glucose (UA) NEGATIVE Urine Ketones NEGATIVE Urine Occult Blood TRACE-INTA Urine Nitrite NEGATIVE Urine Bilirubin NEGATIVE Urine Urobilinogen 0.2 (NORMAL) Ur Leukocyte Esterase TRACE H Urine RBC 0-5 Urine WBC 0-3 Ur Squamous Epith Cells FEW Squamous Urine Bacteria Few Ur Microscopic Review INDICATED Urine Culture Comments INDICATED Urine HCG, Qual NEGATIVE PD MEDICAL DECISION MAKING - ED course Complexity details: reviewed results, re-evaluated patient, considered differential, d/w patient ED course: 36-year-old female who has a longstanding history of recurrent migraine headaches typically getting them every 2 to 3 days presents emergency department with a headache that was not resolved following her usual dose of amitriptyline and sumatriptan. She has no red flags on exam. This is not worst of life nor sudden onset. Initially she was given Compazine and Benadryl with minimal relief. It was then followed by Dilaudid which seemed very helpful. We deferred imaging given an unremarkable neurological exam as well as the history. Patient is discharged home in stable condition emergent return precautions were discussed Departure - Departure Disposition: 01 Home, Self Care Clinical Impression: Migraine headache Qualifiers: Migraine type: unspecified Status migrainosus presence: without status migrainosus Intractability: not intractable Qualified Code(s): G43.909 - Migraine, unspecified, not intractable, without status migrainosus Condition: Stable Record reviewed to determine appropriate education?: Yes Comments: Key I wish you well as you move forward with your transfer to [place] as well as obtaining help in managing your recurrent migraines. Today in the emergency department we gave you Compazine, Benadryl and then a small dose of Dilaudid which seems to be helpful. You are stable to go home. I recommend you drink plenty of fluids and get lots of rest. Today your urine showed no signs of infection. You are not . Return to the ER if you have any loss of vision, slurred speech, facial droop or sudden arm or leg weakness
[2022-04-07 18:30] LABS: BILIRUBIN,URINE NEGATIVE (NEGATIVE); GLUCOSE, URINE (UA) NEGATIVE (NEGATIVE); KETONES,URINE (UA) NEGATIVE (NEGATIVE); LEUKOCYTE ESTERASE, URINE TRACE (NEGATIVE); NITRITE,URINE NEGATIVE (NEGATIVE); OCCULT BLOOD,URINE TRACE-INTA (NEGATIVE); PROTEIN,URINE NEGATIVE (NEGATIVE); UROBILINOGEN,URINE 0.2 (NORMAL) E.U./dL (NORMAL)
[2022-04-07 18:32] LABS: CLARITY,URINE CLEAR (CLEAR)
[2022-04-07 18:33] LABS: HCG UR QUAL NEGATIVE
[2022-04-07 18:47] LABS: RBC,URINE 0-5 /HPF (0-5); SQUAMOUS EPITHELIAL CELL,UR FEW Squamous (<= Few); WBC,URINE 0-3 /HPF (0-5)
[2022-04-07 18:48] LABS: BACTERIA,URINE Few /HPF (None Seen)
== END 2022-04-07 19:29 | disposition home or self-care (01) ==
LOC: ED 17:23
DX: G43.909 Migraine, unspecified, not intractable, without status migrainosus (principal)
CPT/HCPCS: 81001; 81025; 87086; 96374; 96375; 99283; 99284; J1170; J1200; 81003